=== PATIENT | female | born 1955 | race Caucasian/White ===

== ENCOUNTER 2019-09-05 08:08 | Emergency (ER) | payer OTHER ==
[~2019-09-05] VITALS: Ht 172.7 cm; Wt 74.8 kg
[2019-09-05] MEDS ORDERED: STELARA90 MG/1 ML SUBQ (08:20)
[2019-09-05] MEDS ORDERED: NAPROSYN500 MG PO (09:32)
[2019-09-05 09:49] VITALS: BP 162/87
== END 2019-09-05 09:50 | disposition home or self-care (01) ==
LOC: M.ERS 08:08
DX: M19.031 Primary osteoarthritis, right wrist (principal); Z88.1 Allergy status to other antibiotic agents; K50.90 Crohn's disease, unspecified, without complications

== ENCOUNTER → 2019-11-28 | Outpatient (CLI) | payer OTHER ==
[~2019-11-28] MED LIST: NAPROSYN500 MG PO; STELARA90 MG/1 ML SUBQ
== END ==
LOC: M.LAB 16:27
PROVIDERS: ATTEND Internal Medicine Gastroenterology
DX: Z01.812 Encounter for preprocedural laboratory examination (principal); Z20.828 Contact with and (suspected) exposure to other viral communicable diseases; K50.90 Crohn's disease, unspecified, without complications